=== PATIENT | male | born 1985 | race Caucasian/White ===

== ENCOUNTER 2022-07-04 20:05 | Emergency (ER) | payer BC, MEDICAID ==
[~2022-07-04] VITALS: Ht 170.2 cm; Wt 72.6 kg
--- NOTE | 2022-07-04 20:15 | NUR ---
PT BIBA FOR ETOH. PT PLACED ON MONITOR. PT AROUSEABLE.
--- NOTE | 2022-07-04 20:17 | NUR ---
[facility] at bedside
[2022-07-04] MEDS ORDERED: IV NORMAL SALINE 1000 ML BAG IV ONE (20:45)
[2022-07-04] MEDS ORDERED: NALOXONE HCL 0.4 MG/ML AMPUL ONE (20:47)
[2022-07-04] MEDS ORDERED: NALOXONE HCL 0.4 MG/ML AMPUL IV ONE (21:00)
--- NOTE | 2022-07-04 21:00 | NUR ---
LAB AT BEDSIDE DRAWING BLOOD.
--- NOTE | 2022-07-04 21:10 | NUR ---
PT TO CT VIA [facility].
[2022-07-04 21:13] LABS: HEMATOCRIT 41.4 % (36.7-47.1); MEAN CORPUSCULAR HEMOGLOBIN 34.2 uug (23.8-33.4); MEAN CORPUSCULAR VOLUME 101.6 fL (73.0-96.2); PLATELET COUNT (AUTO) 322 K/uL (152-348)
[2022-07-04 21:24] LABS: CARBON DIOXIDE 29 mmol/L (21-32); CHLORIDE 103 mmol/L (98-107); GLUCOSE 90 mg/dL (74-106); POTASSIUM 3.2 mmol/L (3.5-5.1); UREA NITROGEN, BLOOD 5 mg/dL (7-18)
--- NOTE | 2022-07-04 21:39 | NUR ---
LAB CALLED WITH CRITICAL VALUE, ETOH - 129.
[2022-07-04 21:40] LABS: ALANINE AMINOTRANSFERASE 91 U/L (16-63); ALKALINE PHOSPHATASE 40 U/L (50-136); ASPARTATE AMINOTRANSFERASE 70 U/L (15-37); BILIRUBIN,DIRECT 0.1 mg/dL (0.0-0.2); BILIRUBIN,TOTAL 0.3 mg/dL (0.2-1.0); TOTAL PROTEIN, SERUM 7.8 g/dL (6.4-8.2)
[2022-07-04 21:42] LABS: ACETAMINOPHEN < 2.0 ug/mL (10-30)
--- NOTE | 2022-07-04 22:10 | NUR ---
PT SRAIGHT CATHED/ URINE COLLECTED/ SENT. COVID SWAB COLLECTED/SENT.
[2022-07-04 23:03] LABS: *AMPHETAMINE, URINE NEGATIVE (NEGATIVE); *CANNABINOID, URINE NEGATIVE (NEGATIVE); *COCCAINE, URINE NEGATIVE (NEGATIVE); *PHENCYCLIDINE SCREEN,URINE POSITIVE (NEGATIVE)
[2022-07-04] MEDS ORDERED: IV D5W-0.45% NS +20 KCL 1,000 ML IV ONE ×2 (23:30→23:54)
--- NOTE | 2022-07-05 00:30 | NUR ---
PT SLEEPING, AROUSES TO PAIN, VSS AND NAD OBSERVED.
--- NOTE | 2022-07-05 02:30 | NUR ---
PT PULLED OUT IV WHILE SLEEPING.
--- NOTE | 2022-07-05 05:00 | NUR ---
PT SLEEPING WITH VSS AND NAD OBSERVED.
--- NOTE | 2022-07-05 07:00 | NUR ---
PT AWOKE A,A AND O X 2, VSS. PT GIVEN FOOD.Patient discharged to home in stable condition. PT GIVEN LIST OF HOMELESS RESOURCES. Written and verbal after care instructions given. Patient verbalizes understanding of instructions. Stressed follow up or return to ER for worsening s/s.
[2022-07-05 07:06] VITALS: BP 131/84
== END 2022-07-05 07:39 | disposition home or self-care (01) ==
LOC: ER 20:05
DX: F10.129 Alcohol abuse with intoxication, unspecified (principal); F10.121 Alcohol abuse with intoxication delirium; F17.210 Nicotine dependence, cigarettes, uncomplicated; R07.89 Other chest pain; R51.9 Headache, unspecified; M54.2 Cervicalgia; Z71.6 Tobacco abuse counseling; Z88.2 Allergy status to sulfonamides; Z20.822 Contact with and (suspected) exposure to COVID-19; Y90.6 Blood alcohol level of 120-199 mg/100 ml
CPT/HCPCS: 80076; 80048; 85025; 87426; 84484 ×2; 36415; 93005; 71045; 70450; 72125; 99285; 96361; 96375; 80299; 80320; 80307; 99406; 96365; 96366; J2310; J7040; A4663; C1758; G0480